=== PATIENT | female | born 1980 | race Caucasian/White ===

== ENCOUNTER 2019-01-31 07:42 | Inpatient (IN) | payer MEDICARE ==
[~2019-01-31] VITALS: Ht 167.6 cm; Wt 90.7 kg
--- NOTE | 2019-01-31 07:45 | NUR ---
UPON ARRIVAL, PT'S LEFT NECK WHERE IJ WAS APPEARS RED. IJ ACCIDENTALLY PULLED OUT DURING TRANSFER FROM EMS STRETCHER TO HOSPITAL BED.
[2019-01-31] MEDS ORDERED: ABILIFY2 MG PO (07:46)
[2019-01-31] MEDS ORDERED: STRATTERA10 MG PO (07:47)
[2019-01-31] MEDS ORDERED: TRAZODONE HCL150 MG PO (07:47)
--- NOTE | 2019-01-31 07:59 | NUR ---
CONSENTS SIGNED FOR SURGERY
--- NOTE | 2019-01-31 08:10 | NUR ---
PT OUT TO OR AT THIS TIME.
[2019-01-31 08:27] LABS: INR 1.24 (0.85-1.17)
[2019-01-31 08:28] LABS: HEMOGLOBIN 16.2 g/dL (12-16); MCH 30.9 pg (26.0-34.0); MCHC 34.5 g/dL (31.0-37.0); MCV 89.5 fL (80.0-100.0); MEAN PLATELET VOLUME 9.2 fL (7.4-10.4); PLATELET COUNT 302 10x3/uL (130-400); RBC 5.25 10x6/uL (4.00-5.40); RDW 13.3 % (11.5-14.5); WBC 22.7 10x3/uL (4.8-10.8)
[2019-01-31 08:34] LABS: ALBUMIN 2.2 g/dL (3.4-5.0); ALKALINE PHOSPHATASE 104 U/L (46-116); ALT (SGPT) 21 U/L (10-68); BILIRUBIN - TOTAL 0.75 mg/dL (0.2-1.3); CALC OSMOLALITY 267 mosm/kg (275-300); CALCIUM 7.9 mg/dL (8.5-10.1); CARBON DIOXIDE 26.8 mmol/L (21.0-32.0); CHLORIDE - SERUM 98 mmol/L (98-107); CREATININE - SERUM 0.8 mg/dL (0.6-1.3); GLUCOSE 150 mg/dL (74-106); POTASSIUM - SERUM 3.7 mmol/L (3.5-5.1); SODIUM 133 mmol/L (136-145); UREA NITROGEN 9 mg/dL (7-18); eGFR NON AFRICAN AMERICAN 85 mL/min (90-120)
[2019-01-31 09:07] LABS: LYMPHOCYTES 4 % (15-50); MONOCYTES 4 % (2-11); NEUTROPHILS 86 % (40-80); TOXIC GRANULATION 1+
[2019-01-31 09:09] LABS: HYPER SEGMENTED NEUTROPHILS 1+
[2019-01-31 09:10] LABS: PLATELET ESTIMATE NORMAL; ROULEAUX 2+
[2019-01-31 12:48] VITALS: BP 142/48; BMI 32.3
[2019-01-31 12:51] VITALS: BP 164/85
[2019-01-31 16:52] VITALS: BP 123/71
[2019-01-31 20:00] VITALS: BP 130/67
[2019-02-01 01:53] LABS: APPEARANCE HAZY (CLEAR); COLOR YELLOW (YELLOW); GLUCOSE 1000 mg/dL (NEGATIVE); NITRITE NEGATIVE (NEGATIVE); PROTEIN NEGATIVE (NEGATIVE); UDS - AMPHET POSITIVE QUAL (NEGATIVE); UDS - BARB NEGATIVE QUAL (NEGATIVE); UDS - BENZO NEGATIVE QUAL (NEGATIVE); UDS - COCAINE NEGATIVE QUAL (NEGATIVE); UDS - OPIATE NEGATIVE QUAL (NEGATIVE); UDS - PCP NEGATIVE QUAL (NEGATIVE); UDS - THC NEGATIVE QUAL (NEGATIVE)
[2019-02-01 01:54] LABS: BILIRUBIN NEGATIVE (NEGATIVE); KETONE NEGATIVE (NEGATIVE); UROBILINOGEN NORMAL (NORMAL)
--- NOTE | 2019-02-01 02:27 | NUR ---
PT SLIGHTLY DROWSY. RATED PAIN 7/10. GAVE 1 TAB OXY IR. COLLECTED URINE AND SENT TO LAB. COMPLETE ASSESSMENT PER FLOW-SHEET. WILL CONTINUE TO MONITOR.
[2019-02-01 04:00] VITALS: BP 110/74
[2019-02-01 05:18] LABS: RBC 4.17 10x6/uL (4.00-5.40); WBC 26.4 10x3/uL (4.8-10.8)
[2019-02-01 05:19] LABS: BASOPHILS 0.1 % (0-2); EOSINOPHILS 0 % (0-7); HEMOGLOBIN 12.6 g/dL (12-16); IMMATURE GRANULOCYTES 0.6 % (0-5); LYMPHOCYTES 6.5 % (15-50); MCH 30.2 pg (26.0-34.0); MCHC 34.1 g/dL (31.0-37.0); MCV 88.7 fL (80.0-100.0); MONOCYTES 6.4 % (2-11); NEUTROPHILS 86.4 % (40-80); PLATELET COUNT 375 10x3/uL (130-400); RDW 13.4 % (11.5-14.5)
[2019-02-01 05:26] LABS: CALC OSMOLALITY 275 mosm/kg (275-300); CALCIUM 7.9 mg/dL (8.5-10.1); CARBON DIOXIDE 26.4 mmol/L (21.0-32.0); CHLORIDE - SERUM 102 mmol/L (98-107); CREATININE - SERUM 0.7 mg/dL (0.6-1.3); POTASSIUM - SERUM 3.5 mmol/L (3.5-5.1); SODIUM 136 mmol/L (136-145); UREA NITROGEN 8 mg/dL (7-18); eGFR NON AFRICAN AMERICAN > 90 mL/min (90-120)
[2019-02-01 05:29] LABS: GLUCOSE 208 mg/dL (74-106)
[2019-02-01 09:06] VITALS: BP 122/88
--- NOTE | 2019-02-01 09:29 | OP ---
PATIENT NAME: CHARLES HENDRICKS MEDICAL RECORD: [id number] :78 LOCATION:D.MS [facility].2222 ADMISSION DATE:01/31/19 SURGEON: VARUN DEWITT, DATE OF OPERATION: 01/31/2019 PROCEDURE PERFORMED: Right upper extremity fasciotomy and compartment release with wound VAC application. PREOPERATIVE DIAGNOSES: Compartment syndrome, right upper extremity, in the forearm; and infection. POSTOPERATIVE DIAGNOSES: Compartment syndrome, right upper extremity, in the forearm; and infection. INDICATIONS: Ms. Hendricks is a 38-year-old female transferred here from another hospital for compartment syndrome. She said that she had "bug bites" of her right arm and she scratched them a lot and that, for the last 2 weeks, she has been asleep. She presented to the ER there and was transferred here. I saw her upon her arrival to ER. Her right upper extremity, from the mid forearm proximal, was hard to touch and was not compressible at all. She also had pain with passive stretch of the elbow, but not so much of the hand and the fingers. She did have sensation distally and all of her nerves were intact. Radial, ulnar, and median nerves were all intact. The patient, however, was extremely tender to palpation and was swollen from the mid forearm up to the shoulder. The right upper extremity was where the most of the swelling was. She was unaware how it got that bad, but she said that, over the last day or so, it has been the worst. Knowing that, I informed of the risks and told her that we needed to get her back to the OR immediately with pain with passive stretch and how hard her skin was and that she was at risk of losing the limb and losing blood flow. She did have a radial pulse. She was okay with those risks. She has risk for infection as well. She did have also, on the dorsal side of her forearm, a large what seemed to be an abscess that has not ruptured. She denied using any illicit drugs, but somebody has been giving her pain medicine and Xanax. After knowing the risks and the benefits of procedure, she signed the consent. DESCRIPTION OF PROCEDURE: She was taken to the operative suite, laid in supine position, and given general anesthetic and 2 grams of Ancef preoperatively. The right upper extremity was then prepped and draped in sterile fashion. Time-out was performed and everyone was in agreement with correct side, site, patient, and procedure. Incision was then began in the deltopec interval down the lateral arm and crossing the elbow from the lateral to medial to about the mid forearm and then down distally on the forearm little over the flexor carpi radialis tendon. The dissection was made down to each of the compartments. First, in the upper extremity, the anterior compartment was released. Fascia was released on biceps and brachialis as well and then posteriorly it was released off of the humerus, all through the same incision on the posterolateral and the posteromedial side. Then, attention was drawn to the mobile wad. The fascia was released on the mobile wad as well as the dorsal side of the forearm, more at the proximal forearm, and then at the antecubital fossa as well. Dissection was made down. She had somewhat of scar tissue in the antecubital fossa, which was removed and sent for pathology. The incision then began down through the forearm. The forearm compartments on the volar side had been released on the dorsal side through the same incision but more proximally. Once those have been released, on the abscesses on her dorsal aspect of her distal OPERATIVE REPORT [id number] CHARLES HENDRICKS forearm, a #10 blade was used to incise the skin over it and rima purulent fluid came out of that. This was cultured as the tissue that was taken out was cultured as well. The muscles of the upper arm did appear somewhat shiny. They were not as red as the posterior compartment of the upper arm as well as the dorsal compartment of the forearm. The same was for the forearm at the volar aspect. These were little more red and not as white or as shiny as the ones of the upper anterior compartment of the upper arm. Once that was done, the whole arm was irrigated as well as an abscess that had been drained and opened on the dorsal aspect. Then, the Vesseloops and andreia were used to do a Mati sandal-type closure down the whole arm crossing then tying at each end. Then, a wound VAC was placed over that on the incision and the steps also in the dorsal aspect of the distal forearm and bridged over to the volar aspect. The wound VAC was then plugged in and any leaks were covered with extra plastic. We did lay plastic down along the incision prior to setting the sponge on the wound. She was then awakened and taken to recovery in stable condition. BLOOD LOSS: Approximately 400 mL. COMPLICATIONS: None. TRANSINT:[id number] Voice Confirmation ID: [id number] DOCUMENT ID: [id number] VARUN DEWITT DO at 0929 CC: [id number] DICTATION DATE: 01/31/19 1030 CORE FINISHER: 01/31/19 1519 ADM IN [facility] [id number] [place] [address]
[2019-02-01 11:11] LABS: VANCOMYCIN - TROUGH 11.2 ug/mL (10.0-20.0)
[2019-02-01 11:12] LABS: POTASSIUM - SERUM 4.1 mmol/L (3.5-5.1)
[2019-02-01 13:44] VITALS: BP 115/65
--- NOTE | 2019-02-01 14:45 | MORECARE ---
CASE MANAGEMENT DISCHARGE SUMMARY PATIENT: CHARLES HENDRICKS UNIT: [id number] ADM DATE: 01/31/19 AGE: 38 : [birth year] SEX: F ROOM/BED: D.2222 AUTHOR: BRETHA GUERRERO PHYSICIAN: REFERRING PHYSICIAN: STEPHEN HAYNES MD DATE OF SERVICE: 02/01/19 Discharge Plan Patient Name: CHARLES HENDRICKS Facility: [facility]:[place] : 1980 Planned Disposition: Home with Home Health Anticipated Discharge Date: 02/01/19 Discharge Date: Expected LOS: 1 Initial Reviewer: [email or web address] Initial Review Date: 02/01/2019 Generated: 02/01/19 3:45 pm Comments DCP- Discharge Planning Updated by [email or web address]: Sophia Vazquez on 02/01/19 1:[address] Patient Name: CHARLES HENDRICKS Admission Status: ER Accout number: [id number] Admission Date: 01-31-2019 : 1980 Admission Diagnosis: Attending: STEPHEN HAYNES Current LOS: 1 Anticipated DC Date: 02-01-2019 Planned Disposition: Home with Home Health Primary Insurance: MEDICARE A & B Discharge Planning Comments: CM met with patient to complete initial dc planning assessment. CM educated patient on the CM role and verbal consent given by patient to complete assessment. Patient was living with her father prior to admission. She states she will not be returning there "they are no longer on speaking terms". She states she will be staying with a friend "Barbara". She is going to call Barbara to get her address. She states she has 3 children (ages 5,3 and 1 that are staying with family. CM discussed availability of home health, rehab services, and medical equipment. Patient states she may need a skilled facility in [place] or will need home health. She states her friend is a nurse and would be a teachable health care technician. She is going to get me the address of her discharge disposition and also a possible skilled facility to go to. I did inform her that Medicare will only cover 20 days at 100% of a skilled facility. She states she also has Medicaid ([place]). CM will continue to follow and will assist as needed with dc plans/needs. Shucker: Sophia Vazquez DCPIA - Discharge Planning Initial Assessment Updated by [email or web address]: Sophia George on 02/01/19 2:37 pm * Is the patient Alert and Oriented? Yes * How many steps to enter\\exit or inside your home? 3/0 * PCP Dr. Jaylon Hermosillo in [place] * [facility] in [place] * Preadmission Environment Home with Family * ADLs Independent * Equipment None * List name and contact numbers for known caregivers / representatives who currently or will assist patient after discharge: Zoran Chucky - boyfriend - no phone Barbara - friend - * Verbal permission to speak to the caregivers and representatives has been obtained from the patient. Yes * Community resources currently utilized None * Additional services required to return to the preadmission environment? Yes * Can the patient safely return to the preadmission environment? Yes * Has this patient been hospitalized within the prior 30 days at any hospital? No Patient Name: CHARLES HENDRICKS Page [id number] at 1445 All edits/amendments must be made on the electronic document DICTATION DATE: 02/01/191443 ENDLESS BELT FINISHER: FATOUMATA 02/01/19 1444 RPT#: [id number] DC DATE: STATUS: ADM IN [facility] [address] [place] [address] END OF REPORT
[2019-02-01 17:13] VITALS: BP 98/54
[2019-02-01 20:00] VITALS: BP 139/71
[2019-02-01 23:02] LABS: CKMB 2.3 U/L (0.0-3.6); CREATINE KINASE 445 UL (21-215)
[2019-02-01 23:08] LABS: TROPONIN-I < 0.017 ng/mL (0.000-0.060)
[2019-02-02 04:00] VITALS: BP 122/75
[2019-02-02 07:20] LABS: BASOPHILS 0.2 % (0-2); EOSINOPHILS 0.7 % (0-7); HEMOGLOBIN 10.4 g/dL (12-16); IMMATURE GRANULOCYTES 0.5 % (0-5); LYMPHOCYTES 24.6 % (15-50); MCH 29.6 pg (26.0-34.0); MCHC 32.5 g/dL (31.0-37.0); MEAN PLATELET VOLUME 8.7 fL (7.4-10.4); MONOCYTES 5.8 % (2-11); NEUTROPHILS 68.2 % (40-80); RBC 3.51 10x6/uL (4.00-5.40); RDW 13.7 % (11.5-14.5)
[2019-02-02 07:25] LABS: MCV 91.2 fL (80.0-100.0); PLATELET COUNT 278 10x3/uL (130-400); WBC 12.7 10x3/uL (4.8-10.8)
[2019-02-02 07:38] LABS: CALC OSMOLALITY 274 mosm/kg (275-300); CALCIUM 7.8 mg/dL (8.5-10.1); CARBON DIOXIDE 30.3 mmol/L (21.0-32.0); CHLORIDE - SERUM 104 mmol/L (98-107); CKMB 1.8 U/L (0.0-3.6); CREATINE KINASE 440 UL (21-215); CREATININE - SERUM 0.6 mg/dL (0.6-1.3); GLUCOSE 86 mg/dL (74-106); POTASSIUM - SERUM 3.7 mmol/L (3.5-5.1); SODIUM 139 mmol/L (136-145); TROPONIN-I < 0.017 ng/mL (0.000-0.060); UREA NITROGEN 8 mg/dL (7-18); eGFR NON AFRICAN AMERICAN > 90 mL/min (90-120)
--- NOTE | 2019-02-02 07:56 | NUR ---
CALLED TO PT. ROOM WANTING PAIN MED EDUCATED THEY WERE NOT DUE YET AND WHEN THEY COULD BE GIVEN. STATED OK CALLED BACK WITH PT C/O CHEST PAIN AT 2300 ASSISMENT COMPLETED ELAVATED HR V/S TEMP 99.9 B/P 139/71, P 99 RESP 22 98% ON ROOM AIR. LETTER SORTING MACHINE OPERATOR CALLED AND WAS ON SITE STATED HE WOULD COME CHECK HER. NURSE EDUCATED PATIENT ON DEEP BREATHING . SHE CONTIUED TO TAKE A BREATH AND HOLD THEN BLOW OUT HARD. EDUCATED AGAIN ON BREATHING, AND THAT HER V/S WERE STABLE. BUT THAT THE LETTER SORTING MACHINE OPERATOR WOULD BE BY TO CHECK ON HER AND HAD ORDERED LABS TO BE SAFE. sHE STATED OH GREAT THEY ARE GOING TO TAKE MORE BLOOD. EDUCATED ON THE NEED TO CHECK LEVELS TO INSURE EVERY THIS WAS GOOD. THE SHE STATED I WANT A BATH EDUCATED HER THAT STAFF WAS GETTING V/S AND DOING ALL THE THINGS TO START THE SHIFT BUT WOULD BE GLAD TO ASSIST WITH THAT SOON STAFF WAS ABLE TO DO SO. CALL STAFF BACK THREE MORE TIMES TO ASK FOR HER BATH EDUCATED THAT STAFF WOULD BED WITH HER AND DO SO SOON WAS POSABLE. SHE STATED I AM LAYING IN A DRITY BED. I NEEDS NEW SHEETS AND A BATH AGAIN ASURED HER THAT STAFF WOULD DO SO SOON STAFF WAS AVABLE TO DO SO. CALLED TO ROOM PATIENT ASKING WERE HER BOYFRIND WAS AND STATED IT DON'T TAKE 2 HOURS TO GO TO THE [facility]. THE NEXT TIME SHE CALLED STAFF TO ROOM SHE HAD THROUG PILLOWS AND BLANKES IN THE FLOOR AGAING UPSET BECOUSE HER BOYFRIND WAS GONE SO LONG AGAIN. AT 0329 TEMP OF 101.2 CALL TO LETTER SORTING MACHINE OPERATOR NEW ORDER FOR TYLENOL 650MG EVERY 4 HOURS NEEDE FOR PAIN OR TEMP. GIVEN PER ORDERS. BATH HAD BEEN GIVEN. AT 0400 AM IV OUT ATEMPTS X 2 FOR THIS NURSE ATEMPT X 2 BY 2ED FLOOR NURSE AND X2 BY ER NURSE STILL UNABLE TO START IV. CALL TO LETTER SORTING MACHINE OPERATOR ORDER FOR VASCULAR ACCESS . ORDER PLACED . PT RESTING AT THIS TIME WITH NO NEEDS.
[2019-02-02 08:00] VITALS: BP 94/63
--- NOTE | 2019-02-02 08:00 | NUR ---
ASSESSMENT PER FLOW SHEET. PT IS WITHOUT DISTRESS.CALL LIGHT IN REACH
[2019-02-02 13:33] LABS: CKMB 1.6 U/L (0.0-3.6); CREATINE KINASE 368 UL (21-215); TROPONIN-I < 0.017 ng/mL (0.000-0.060); VANCOMYCIN - TROUGH 7.3 ug/mL (10.0-20.0)
[2019-02-02 15:10] VITALS: BP 123/71
--- NOTE | 2019-02-02 16:24 | MORECARE ---
CASE MANAGEMENT DISCHARGE SUMMARY PATIENT: CHARLES HENDRICKS UNIT: [id number] ADM DATE: 01/31/19 AGE: 38 : [birth year] SEX: F ROOM/BED: D.2222 AUTHOR: YOLANDA,DOC PHYSICIAN: REFERRING PHYSICIAN: STEPHEN HAYNES MD DATE OF SERVICE: 02/02/19 Discharge Plan Patient Name: CHARLES HENDRICKS Facility: [facility]:[place] : 1980 Planned Disposition: Home with Home Health Anticipated Discharge Date: 02/01/19 Discharge Date: Expected LOS: 1 Initial Reviewer: [email or web address] Initial Review Date: 02/01/2019 Generated: 02/02/19 5:23 pm Comments DCP- Discharge Planning Updated by [email or web address]: Sophia Bradenrehan on 02/02/19 3:[address] I received a call from "Novemberela" from [facility] in [place] in [facility] [place]. She states that they are having a meeting about this patient and she has talked with the patient in room 2222 concerning her reason for admission. Ms. Alfaro states the patient told her from an arm infection. Eleonora asked if I could get a copy of her drug screen (patient "told me she had one done") and fax to her at [phone] or give her a verbal. I explained to her that I could not be certain over the phone who she is and was not able to do that. I called Susan Chavez and informed her and she states to refer her to medical records. I called and spoke with Adriana in Medical records and she states we cannot fax a drug screen to her without a court order and to refer all calls to them from [facility]. I went to the patient's room to see if she has spoken to Eleonora Alfaro and the boyfriend is in the room and states to come back at a later time to speak with her privately. CM will continue to follow and assist with discharge planning/needs. DCP- Discharge Planning Updated by [email or web address]: Sophia Bradenrehan on 02/01/19 1:[address] Patient Name: CHARLES HENDRICKS Admission Status: ER Accout number: [id number] Admission Date: 01-31-2019 : 1980 Admission Diagnosis: Attending: STEPHEN HAYNES Current LOS: 1 Anticipated DC Date: 02-01-2019 Planned Disposition: Home with Home Health Primary Insurance: MEDICARE A & B Discharge Planning Comments: CM met with patient to complete initial dc planning assessment. CM educated patient on the CM role and verbal consent given by patient to complete assessment. Patient was living with her father prior to admission. She states she will not be returning there "they are no longer on speaking terms". She states she will be staying with a friend "Barbara". She is going to call Barbara to get her address. She states she has 3 children (ages 5,3 and 1 that are staying with family. CM discussed availability of home health, rehab services, and medical equipment. Patient states she may need a skilled facility in [place] or will need home health. She states her friend is a nurse and would be a teachable child care leader. She is going to get me the address of her discharge disposition and also a possible skilled facility to go to. I did inform her that Medicare will only cover 20 days at 100% of a skilled facility. She states she also has Medicaid ([place]). CM will continue to follow and will assist as needed with dc plans/needs. Vehicle Dismantler: Sophia Vazquez DCPIA - Discharge Planning Initial Assessment Updated by [email or web address]: Sophia Vazquez on 02/01/19 2:37 pm * Is the patient Alert and Oriented? Yes * How many steps to enter\\exit or inside your home? 3/0 * PCP Dr. Jaylon Hermosillo in [place] * [facility] in [place] * Preadmission Environment Home with Family * ADLs Independent * Equipment None * List name and contact numbers for known caregivers / representatives who currently or will assist patient after discharge: Zoran Locke - boyfriend - no phone Barbara - friend - * Verbal permission to speak to the caregivers and representatives has been obtained from the patient. Yes * Community resources currently utilized None * Additional services required to return to the preadmission environment? Yes * Can the patient safely return to the preadmission environment? Yes * Has this patient been hospitalized within the prior 30 days at any hospital? No Last DP export: 02/01/19 1:45 p Patient Name: CHARLES HENDRICKS Page [id number] at 1624 All edits/amendments must be made on the electronic document DICTATION DATE: 02/02/191622 SHAKE SAWYER: FATOUMATA 02/02/191622 RPT#: [id number] DC DATE: STATUS: ADM IN [facility] [address] [place] [address] END OF REPORT
--- NOTE | 2019-02-02 17:54 | NUR ---
LARGE STOOL, BROWN IN COLOR THIS AFTERNOON.
--- NOTE | 2019-02-02 20:00 | NUR ---
ASSESSMENT PER FLOWSHEET. DRSG TO RT ARM WITH WOUND VAC IN PLACE. PATIENT LYING IN BED IN THE NUDE. REFUSES TO WEAR A GOWN. ASK PATIENT TO USE SHEET TO COVER UP HER BODY. IV PATENT LEFT UPPER ARM MIDLINE OF NS AT 50CC'S/HR. SITE CLEAR. HER BOYFRIEND LYING IN BED WITH HER.
[2019-02-02 21:01] VITALS: BP 140/59
--- NOTE | 2019-02-02 21:15 | NUR ---
MEDS GIVEN PER MAR.
--- NOTE | 2019-02-03 | NUR ---
PT NOW NPO FOR SURGERY. ASK PATIENT IF SHE WANTED TO TAKE A HIBICLEANSE BATH PATIENT STATED ONLY IF I CAN GET INTO THE SHOWER. INSTRUCTED PATIENT WILL NOT BE ABLE TO GET DRSG TO RT ARM WET WILL NEED TO TAKE A SPONGE BATH. PATIENT DECLINED AT THIS TIME.
--- NOTE | 2019-02-03 00:26 | NUR ---
AWAKE C/O PAIN IN RT ARM INCISION. OXY IR 10MG PO GIVEN FOR PAIN CONTROL WITH A SIP OF WATER.
[2019-02-03 00:48] VITALS: BP 129/71
--- NOTE | 2019-02-03 04:00 | NUR ---
EYES CLOSED RESPIRATIONS WITH EASE AND UNLABORED. REMAINS NPO FOR SURGERY.
--- NOTE | 2019-02-03 04:23 | NUR ---
HIBICLEANSE BATH GIVEN WITH LINENS CHANGED.
[2019-02-03 05:25] VITALS: BP 134/66
[2019-02-03 06:13] LABS: BASOPHILS 0.4 % (0-2); EOSINOPHILS 3.2 % (0-7); HEMATOCRIT 27.9 % (36.0-48.0); HEMOGLOBIN 9.1 g/dL (12-16); IMMATURE GRANULOCYTES 0.5 % (0-5); LYMPHOCYTES 32.9 % (15-50); MCH 29.6 pg (26.0-34.0); MCHC 32.6 g/dL (31.0-37.0); MCV 90.9 fL (80.0-100.0); MEAN PLATELET VOLUME 8.4 fL (7.4-10.4); MONOCYTES 5.9 % (2-11); NEUTROPHILS 57.1 % (40-80); PLATELET COUNT 315 10x3/uL (130-400); RBC 3.07 10x6/uL (4.00-5.40); RDW 13.5 % (11.5-14.5)
[2019-02-03 06:16] LABS: WBC 9.4 10x3/uL (4.8-10.8)
[2019-02-03 06:26] LABS: CALC OSMOLALITY 277 mosm/kg (275-300); CALCIUM 7.8 mg/dL (8.5-10.1); CARBON DIOXIDE 29.7 mmol/L (21.0-32.0); CHLORIDE - SERUM 106 mmol/L (98-107); CREATININE - SERUM 0.6 mg/dL (0.6-1.3); GLUCOSE 86 mg/dL (74-106); POTASSIUM - SERUM 3.9 mmol/L (3.5-5.1); SODIUM 141 mmol/L (136-145); UREA NITROGEN 7 mg/dL (7-18); eGFR NON AFRICAN AMERICAN > 90 mL/min (90-120)
--- NOTE | 2019-02-03 07:37 | NUR ---
PATIENT IN BED WITH IV AND WOUND VAC INTACT. STATES SHE IS HAVING VAGINAL PAIN AND BURNING IF SOMEONE HAS " PLAYED WITH IT A LOT". NO REDNESS OR RASH ON THE OUTSIDE OF HER VAGINA. STATED SHE HAS NO ITCHING. EXPLAINED WOULD SPEAK WITH PHYSICIAN ABOUT IT. VERBALIZED UNDERSTANDING. CALL LIGHT WITHIN REACH.
--- NOTE | 2019-02-03 08:50 | NUR ---
ASSESSMENT PER FLOW SHEET. PT IS WITHOUT DISTRESS. NPO FOR PROCEDURE TODAY. FAMILY AT BEDSIDE
[2019-02-03 09:19] VITALS: BP 157/72
--- NOTE | 2019-02-03 10:30 | NUR ---
pt reports sips and bites of food this am. surg put off till am
[2019-02-03 11:54] LABS: HCG URINE NEGATIVE (NEGATIVE)
[2019-02-03 11:59] LABS: UDS - AMPHET NEGATIVE QUAL (NEGATIVE); UDS - BARB NEGATIVE QUAL (NEGATIVE); UDS - BENZO NEGATIVE QUAL (NEGATIVE); UDS - COCAINE NEGATIVE QUAL (NEGATIVE); UDS - OPIATE NEGATIVE QUAL (NEGATIVE); UDS - PCP NEGATIVE QUAL (NEGATIVE); UDS - THC NEGATIVE QUAL (NEGATIVE)
[2019-02-03 12:56] VITALS: BP 132/75
[2019-02-03 13:13] LABS: FUNGUS STAIN Final report (())
--- NOTE | 2019-02-03 17:41 | NUR ---
REMAINS WITHOUT SIGNS OF PAIN. FAMILY REMAINS AT BEDSIDE.
[2019-02-03 18:33] VITALS: BP 111/83
--- NOTE | 2019-02-03 19:00 | NUR ---
WANTS PAINMEDS.PAIN MEDS ORDERED PER MAR
[2019-02-03 20:00] VITALS: BP 154/58
--- NOTE | 2019-02-03 20:00 | NUR ---
ASSESSMENT PER FLOWSHEET. IV PATENT LEFT UPPER ARM MIDLINE WITH NS AT 50CC'S/HR. RT ARM WITH WOUND VAC IN PLACE DRSG C/D/I. PATIENT REFUSES TO WEAR GOWN AND LIES IN BED IN THE NUDE. BOYFRIEND IN ROOM. PATIENT WAS ASKED SEVERAL TIMES TO COVER UP HERSELF. EVEN IF SHE DOESN'T WANT TO WEAR A GOWN.
--- NOTE | 2019-02-03 22:00 | NUR ---
PATIENT REFUSES MEDS.
[2019-02-04] VITALS: BP 139/62
--- NOTE | 2019-02-04 00:18 | NUR ---
EYES CLOSED RESPIRATIONS WITH EASE AND UNLABORED.
[2019-02-04 04:00] VITALS: BP 158/53
--- NOTE | 2019-02-04 06:28 | NUR ---
REMAINS NPO FOR SURGERY. AUTOMOBILE RELOCATION ENGINEER HERE FOR BLOOD DRAW DONE. WILL BE DOING A SELF CARE HIBICLEANSE SPONGE BATH. UNABLE TO GET INTO SHOWER BECAUSE OF HER WOUND VAC RT ARM.
[2019-02-04 06:45] LABS: BASOPHILS 0.3 % (0-2); EOSINOPHILS 4.5 % (0-7); HEMATOCRIT 29.3 % (36.0-48.0); HEMOGLOBIN 9.9 g/dL (12-16); LYMPHOCYTES 30.2 % (15-50); MCH 30.4 pg (26.0-34.0); MCHC 33.8 g/dL (31.0-37.0); MCV 89.9 fL (80.0-100.0); MEAN PLATELET VOLUME 8.2 fL (7.4-10.4); MONOCYTES 5.7 % (2-11); NEUTROPHILS 58.3 % (40-80); PLATELET COUNT 338 10x3/uL (130-400); RBC 3.26 10x6/uL (4.00-5.40); RDW 13.2 % (11.5-14.5); WBC 9.5 10x3/uL (4.8-10.8)
[2019-02-04 06:58] LABS: CALC OSMOLALITY 276 mosm/kg (275-300); CALCIUM 8.2 mg/dL (8.5-10.1); CARBON DIOXIDE 30.7 mmol/L (21.0-32.0); CHLORIDE - SERUM 103 mmol/L (98-107); CREATININE - SERUM 0.7 mg/dL (0.6-1.3); GLUCOSE 91 mg/dL (74-106); POTASSIUM - SERUM 4.3 mmol/L (3.5-5.1); SODIUM 139 mmol/L (136-145); eGFR NON AFRICAN AMERICAN > 90 mL/min (90-120)
[2019-02-04 07:05] LABS: UREA NITROGEN 10 mg/dL (7-18)
--- NOTE | 2019-02-04 08:00 | NUR ---
RECEIVED REPORT. PT REMAINS NPO FOR SURGERY TODAY. LYING IN BED EYES CLOSED RESTING. SIGNIFICANT OTHER AT BEDSIDE. LEFT UPPER ARM MIDLINE RUNNING NS @ 50ML/HR. REFUSED TO WEAR SCD. NO CONCERNS VOICED AT THIS TIME. WILL CONTINUE TO MONITOR
[2019-02-04 09:09] VITALS: BP 165/78
--- NOTE | 2019-02-04 11:18 | NUR ---
PT NOT IN ROOM.
[2019-02-04 12:36] VITALS: BP 148/80
[2019-02-04 14:36] VITALS: Ht 167.6 cm; Wt 90.7 kg
--- NOTE | 2019-02-04 14:53 | MORECARE ---
CASE MANAGEMENT DISCHARGE SUMMARY PATIENT: CHARLES HENDRICKS UNIT: [id number] ADM DATE: 01/31/19 AGE: 38 : 78 SEX: F ROOM/BED: D.2222 AUTHOR: YOLANDA,DOC PHYSICIAN: REFERRING PHYSICIAN: STEPHEN HAYNES MD DATE OF SERVICE: 02/04/19 Discharge Plan Patient Name: CHARLES HENDRICKS Facility: [facility]:[place] : 1980 Planned Disposition: Home with Home Health Anticipated Discharge Date: 02/01/19 Discharge Date: Expected LOS: 1 Initial Reviewer: [email or web address] Initial Review Date: 02/01/2019 Generated: 02/04/19 3:52 pm Comments DCP- Discharge Planning Updated by [email or web address]: Sophia Vazquez on 02/04/19 1:[address] November with [facility] in [place] called again asking for drug screen to be faxed to her. I informed her that I could not fax any records to her and referred her to Medical Records and gave her their number and transferred her call. Eleonora's call back number Is [phone] or her cell number is [phone]. DCP- Discharge Planning Updated by [email or web address]: Sophia Vazquez on 02/02/19 3:[address] I received a call from "Eleonora Alfaro" from [facility] in [place] in [facility]. She states that they are having a meeting about this patient and she has talked with the patient in room 2222 concerning her reason for admission. Ms. Alfaro states the patient told her from an arm infection. Eleonora Alfaro asked if I could get a copy of her drug screen (patient "told me she had one done") and fax to her at [phone] or give her a verbal. I explained to her that I could not be certain over the phone who she is and was not able to do that. I called Susan Chavez and informed her and she states to refer her to medical records. I called and spoke with Adriana in Medical records and she states we cannot fax a drug screen to her without a court order and to refer all calls to them from [facility]. I went to the patient's room to see if she has spoken to November and the boyfriend is in the room and states to come back at a later time to speak with her privately. CM will continue to follow and assist with discharge planning/needs. DCP- Discharge Planning Updated by [email or web address]: Sophia Vazquez on 02/01/19 1:[address] Patient Name: CHARLES HENDRICKS Admission Status: ER Accout number: [id number] Admission Date: 01-31-2019 : 1980 Admission Diagnosis: Attending: STEPHEN HAYNES Current LOS: 1 Anticipated DC Date: 02-01-2019 Planned Disposition: Home with Home Health Primary Insurance: MEDICARE A & B Discharge Planning Comments: CM met with patient to complete initial dc planning assessment. CM educated patient on the CM role and verbal consent given by patient to complete assessment. Patient was living with her father prior to admission. She states she will not be returning there "they are no longer on speaking terms". She states she will be staying with a friend "Barbara". She is going to call Barbara to get her address. She states she has 3 children (ages 5,3 and 1 that are staying with family. CM discussed availability of home health, rehab services, and medical equipment. Patient states she may need a skilled facility in [place] or will need home health. She states her friend is a nurse and would be a teachable healthcare or medical. She is going to get me the address of her discharge disposition and also a possible skilled facility to go to. I did inform her that Medicare will only cover 20 days at 100% of a skilled facility. She states she also has Medicaid ([place]). CM will continue to follow and will assist as needed with dc plans/needs. Wood Boatbuilder Apprentice: Sophia Vazquez DCPIA - Discharge Planning Initial Assessment Updated by [email or web address]: Sophia Vazquez on 02/01/19 2:37 pm * Is the patient Alert and Oriented? Yes * How many steps to enter\\exit or inside your home? 3/0 * PCP Dr. Jaylon Hermosillo in [place] * [facility] in [place] * Preadmission Environment Home with Family * ADLs Independent * Equipment None * List name and contact numbers for known caregivers / representatives who currently or will assist patient after discharge: Zoran Long - boyfriend - no phone Barbara - friend - * Verbal permission to speak to the caregivers and representatives has been obtained from the patient. Yes * Community resources currently utilized None * Additional services required to return to the preadmission environment? Yes * Can the patient safely return to the preadmission environment? Yes * Has this patient been hospitalized within the prior 30 days at any hospital? No Last DP export: 02/02/19 3:23 p Patient Name: CHARLES HENDRICKS Page 70710 at 1453 All edits/amendments must be made on the electronic document DICTATION DATE: 02/04/191451 IN CLASS SPECIAL EDUCATION TEACHER: FATOUMATA 02/04/191451 RPT#: [id number] DC DATE: STATUS: ADM IN [facility] [address] [place] [address] END OF REPORT
--- NOTE | 2019-02-04 16:07 | NUR ---
LYING IN BED ON LEFT SIDE ALERT AND NAKED, ASKED PT TO COVER UP PT REFUSED TO DO SO. SIGNIFICANT OTHER AT BEDSIDE
[2019-02-04 16:17] VITALS: BP 117/72
--- NOTE | 2019-02-04 17:31 | NUR ---
LYING IN BED ON LEFT SIDE EYES CLOSED RESTING. FAMILY AT BEDSIDE NOTED SLEEPING. NO SIGNS OF DISTRESS NOTED. CALL LIGHT WITHIN REACH, FALL PRECAUTIONS IN PLACE. WILL CONTINUE TO MONITOR
[2019-02-04 20:38] VITALS: BP 172/80
--- NOTE | 2019-02-04 23:30 | NUR ---
WASHED HAIR IN WARM SHAMPOO CAP. RIGHT HAND SWOLLEN. PULSES PRESENT. ELEVATED ON PILLOWS. ABSCESS ON LEFT THIGH DRAINING BLOODY PUS. CLEANED WITH SALINE AND EXPRESSED. CLEAN, DRIED AND APPLIED BORDERED GAUZE DRESSING. PT RATES ARM PAIN 8/10. GAVE OXY IR 10 MG PO. NO OTHER NEEDS. WILL CONTINUE TO MONITOR.
[2019-02-05 05:40] VITALS: BP 153/90
[2019-02-05 07:55] LABS: CALC OSMOLALITY 273 mosm/kg (275-300); CALCIUM 8.6 mg/dL (8.5-10.1); CARBON DIOXIDE 29.9 mmol/L (21.0-32.0); CHLORIDE - SERUM 102 mmol/L (98-107); CREATININE - SERUM 0.7 mg/dL (0.6-1.3); GLUCOSE 99 mg/dL (74-106); SODIUM 138 mmol/L (136-145); UREA NITROGEN 8 mg/dL (7-18); eGFR NON AFRICAN AMERICAN > 90 mL/min (90-120)
[2019-02-05 07:56] LABS: POTASSIUM - SERUM 5.8 mmol/L (3.5-5.1)
[2019-02-05 09:06] LABS: HEMATOCRIT 33.8 % (36.0-48.0); HEMOGLOBIN 11.8 g/dL (12-16); LYMPHOCYTES 23.2 % (15-50); MCH 31.4 pg (26.0-34.0); MCHC 34.9 g/dL (31.0-37.0); MCV 89.9 fL (80.0-100.0); MEAN PLATELET VOLUME 8.7 fL (7.4-10.4); NEUTROPHILS 71.7 % (40-80); PLATELET COUNT 408 10x3/uL (130-400); RBC 3.76 10x6/uL (4.00-5.40); RDW 12.9 % (11.5-14.5); WBC 9.5 10x3/uL (4.8-10.8)
[2019-02-05 10:14] LABS: FUNGUS MYCOLOGY CULTURE Preliminary report (())
[2019-02-05 11:19] VITALS: BP 156/77
[2019-02-05 12:57] VITALS: BP 145/55
[2019-02-05 16:58] VITALS: BP 108/88
--- NOTE | 2019-02-05 18:00 | NUR ---
SPOKE WITH PATIENT AND EXPLAINED TO HER THAT SHE NEEDED TO LAY DOWN AND LET HER ARM BE ELEVATED ON A PILLOW BECAUSE IT IS SWOLLEN. VERBALIZED UNDERSTANDING. ICE PACK PLACED ON RIGHT ARM AT THIS TIME. PATIENT HAND SWOLLEN. ABLE TO MOVE FINGERS AND PULSE WNL. CALL LIGHT WITHIN REACH.
--- NOTE | 2019-02-05 18:25 | NUR ---
PATIENT MIDLINE LEAKING AND HURTING PATIENT. REMOVED AT THIS TIME WITH CATH TIP INTACT. CALLED LOG STACKER OPERATOR TO MAKE AWARE.
--- NOTE | 2019-02-05 18:53 | NUR ---
TRIED TO START A NEW IV IN PATIENTS LEFT CHEST. UNSUCCESSFUL AT THIS TIME. SPOKE WITH TEODORO AND HE STATED TO FIND OUT IF MYRNA OR JUSTIN IS HERE. NEITHER ARE HERE AT THIS TIME. WILL NOTIFY TEODORO.
[2019-02-06] VITALS: BP 157/79
--- NOTE | 2019-02-06 01:30 | NUR ---
PT ALERT & ORIENTED. IV 22 G RESITED TO LEFT FOREARM BY YOSEF ANN. HUNG SCHEDULED ANTIBIOTIC. RIGHT ARM WOUND BLEEDING THROUGH. CHANGED 4X4'S AND REWRAPPED WITH NEW ZAYNAB. NO OTHER NEEDS. WILL CONTINUE TO MONITOR.
[2019-02-06 04:00] VITALS: BP 148/60
[2019-02-06 10:25] LABS: HEMATOCRIT 29.3 % (36.0-48.0); HEMOGLOBIN 10.2 g/dL (12-16); LYMPHOCYTES 26.3 % (15-50); MCH 31.5 pg (26.0-34.0); MCHC 34.8 g/dL (31.0-37.0); MCV 90.4 fL (80.0-100.0); MEAN PLATELET VOLUME 7.6 fL (7.4-10.4); NEUTROPHILS 67.1 % (40-80); PLATELET COUNT 486 10x3/uL (130-400); RBC 3.24 10x6/uL (4.00-5.40); RDW 12.6 % (11.5-14.5)
[2019-02-06 10:32] LABS: WBC 13.1 10x3/uL (4.8-10.8)
[2019-02-06 10:35] LABS: ALBUMIN 2.6 g/dL (3.4-5.0); ALKALINE PHOSPHATASE 105 U/L (46-116); ALT (SGPT) 32 U/L (10-68); BILIRUBIN - TOTAL 0.16 mg/dL (0.2-1.3); CALC OSMOLALITY 273 mosm/kg (275-300); CALCIUM 9.1 mg/dL (8.5-10.1); CHLORIDE - SERUM 100 mmol/L (98-107); CREATININE - SERUM 0.7 mg/dL (0.6-1.3); GLUCOSE 116 mg/dL (74-106); PROTEIN - SERUM 7.5 g/dL (6.4-8.2); SODIUM 137 mmol/L (136-145); UREA NITROGEN 10 mg/dL (7-18); eGFR NON AFRICAN AMERICAN > 90 mL/min (90-120)
[2019-02-06 10:36] LABS: POTASSIUM - SERUM 3.8 mmol/L (3.5-5.1)
[2019-02-06 12:32] VITALS: BP 150/76
--- NOTE | 2019-02-06 13:12 | NUR ---
PT RESTING IN BED. NO SIGNS OF DISTRESS. IV TO LEFT FOR ARM PATENT NO REDNESS OR TENDERNESS. HAS INCISION TO RIGHT ARM. DRESSING CHANGED THIS AM. COMPLAINS OF PAIN. MEDICATIONS GIVEN. DENIES ANY FUTHER NEED AT THIS TIME. CALL LIGHT IN REACH. BED LOW POSTIION. FAMILY AT BEDSIDE.
--- NOTE | 2019-02-06 22:15 | NUR ---
PREMEDICATED PT WITH OXY IR 10 MG PO FOR DRESSING CHANGE. ASSESSMENT COMPLETE PER FLOW-SHEET. PT LYING IN BED RESTING. WILL CONTINUE TO MONITOR.
--- NOTE | 2019-02-06 23:40 | NUR ---
REMOVED OLD PACKING FROM RIGHT ARM WOUND. PT PACKED AND DRESSED WET TO DRY. CHANGED BORDER DRESSING ON TOP PART OF INCISION. WRAPPED WITH NEW ZAYNAB WRAP. PUT DRESSING ON LEFT THIGH ABSCESS. NO OTHER NEEDS. WILL REASSESS AND CONTINUE TO MONITOR.
[2019-02-07 00:56] VITALS: BP 169/93
--- NOTE | 2019-02-07 04:59 | NUR ---
PT C/O LEFT FOREARM IV STARTING TO BURN. IV NO LONGER PATENT. REMOVED IV CATHETER INTACT. 22 G IV RESITED TO LEFT UPPER ARM BY DAVID ANDERSON. HUNG SCHEDULED ANTIBIOTICS. PT C/O INCISIONAL PAIN 02/17. GAVE OXY IR 10 MG PO. NO OTHER NEEDS. WILL REASSESS AND CONTINUE TO MONITOR.
[2019-02-07 05:44] VITALS: BP 139/76
[2019-02-07 06:54] LABS: ALBUMIN 2.4 g/dL (3.4-5.0); ALKALINE PHOSPHATASE 87 U/L (46-116); ALT (SGPT) 27 U/L (10-68); CALC OSMOLALITY 278 mosm/kg (275-300); CALCIUM 8.4 mg/dL (8.5-10.1); CARBON DIOXIDE 28.6 mmol/L (21.0-32.0); CHLORIDE - SERUM 104 mmol/L (98-107); CREATININE - SERUM 0.8 mg/dL (0.6-1.3); GLUCOSE 88 mg/dL (74-106); PROTEIN - SERUM 6.6 g/dL (6.4-8.2); SODIUM 140 mmol/L (136-145); eGFR NON AFRICAN AMERICAN 85 mL/min (90-120)
[2019-02-07 06:55] LABS: UREA NITROGEN 14 mg/dL (7-18)
[2019-02-07 07:03] LABS: BASOPHILS 0.6 % (0-2); HEMATOCRIT 29.8 % (36.0-48.0); HEMOGLOBIN 9.6 g/dL (12-16); IMMATURE GRANULOCYTES 3.3 % (0-5); LYMPHOCYTES 34.1 % (15-50); MCH 29.5 pg (26.0-34.0); MCHC 32.2 g/dL (31.0-37.0); MCV 91.7 fL (80.0-100.0); MEAN PLATELET VOLUME 8.5 fL (7.4-10.4); RBC 3.25 10x6/uL (4.00-5.40); RDW 13.6 % (11.5-14.5)
[2019-02-07 07:13] LABS: PLATELET COUNT 379 10x3/uL (130-400); WBC 9.7 10x3/uL (4.8-10.8)
[2019-02-07 10:25] VITALS: BP 145/90
--- NOTE | 2019-02-07 11:22 | NUR ---
PT RESTING IN BED. NO SIGNS OF DISTRESS. IV TO LEFT UPPER ARM PATENT NO REDNESS OR TENDERNESS. HAS DRESSING TO RIGHT ARM. WILL BE CHANGED. DENIES ANY FUTHER NEED AT THIS TIME. CALL LIGHT IN REACH. BED LOW POSITION. FAMILY AT BEDSIDE.
[2019-02-07 15:42] VITALS: BP 142/83
--- NOTE | 2019-02-07 19:11 | NUR ---
I have reviewed this patient and I concur with the Shift Assessment completed by the Licensed Practical Nurse today this shift.
[2019-02-07 20:59] VITALS: BP 133/68
--- NOTE | 2019-02-08 01:00 | NUR ---
REMOVED PACKING AND DRESSING FROM RIGHT ARM INCISION. INCISION EDGES APPROXIMATED WITHOUT REDNESS. WOUND BED PINK, SKIN EDGES DISCOLORED. SWELLING WITH SLIGHT REDNESS LATERAL TO WOUND BED. CALLED DR. WALSH AND OUTLINE REDNESS WITH MARKER. ASKED DR WALSH ABOUT ANTIBIOTIC. DR WALSH SAYS PRIMARY DOCS TO DIRECT ANTIBIOTIC THERAPY AND PAIN MEDS.
[2019-02-08 05:53] VITALS: BP 141/70
[2019-02-08 09:00] VITALS: BP 131/64
[2019-02-08 13:45] VITALS: BP 136/53
[2019-02-08 16:43] VITALS: BP 119/53
--- NOTE | 2019-02-08 17:00 | NUR ---
I have reviewed this patient and I concur with the Shift Assessment completed by the Licensed Practical Nurse today this shift.
[2019-02-08 20:00] VITALS: BP 136/67
--- NOTE | 2019-02-08 20:00 | NUR ---
ASSESSMENT PER FLOWSHEET. FOUND WOUND VAC TO RT AC NO CONNECTED TO MACHINE AND MACHINE TURNED OFF. CONNECTED TO MACHINE AND TURNED ON MACHINE. INSTRUCTED PATIENT NOT TO DISCONNECT WOUND VAC ANYMORE. ONLY THE NURSE ALLOWED TO WORK ON THE MACHINE. DRSGS X2 TO RT UPPER AND RT LOWER PORTION OF ARM C/D/I. SR UP X2 CALL LIGHT WITHIN REACH.
--- NOTE | 2019-02-08 22:22 | NUR ---
C/O PAIN IN HER RT ARM INCISIONAL SITE. RATES PAIN LEVEL #5. OXYIR 5MG PO GIVEN FOR PAIN CONTROL.
--- NOTE | 2019-02-09 | NUR ---
EYES CLOSED RESPIRATIONS WITH EASE AND UNLABORED. BOYFRIEND SLEEPING IN BED WITH HER.
[2019-02-09 01:17] VITALS: BP 118/75
[2019-02-09 05:20] VITALS: BP 123/67
[2019-02-09 06:17] LABS: HEMATOCRIT 34.2 % (36.0-48.0); HEMOGLOBIN 11.1 g/dL (12-16); MCH 29.8 pg (26.0-34.0); MCHC 32.5 g/dL (31.0-37.0); MCV 91.7 fL (80.0-100.0); MEAN PLATELET VOLUME 8.4 fL (7.4-10.4); PLATELET COUNT 386 10x3/uL (130-400); RBC 3.73 10x6/uL (4.00-5.40); RDW 13.6 % (11.5-14.5); WBC 10.2 10x3/uL (4.8-10.8)
[2019-02-09 06:21] LABS: ALBUMIN 2.8 g/dL (3.4-5.0); ALKALINE PHOSPHATASE 105 U/L (46-116); ALT (SGPT) 29 U/L (10-68); BILIRUBIN - TOTAL 0.16 mg/dL (0.2-1.3); CALC OSMOLALITY 276 mosm/kg (275-300); CALCIUM 8.8 mg/dL (8.5-10.1); CARBON DIOXIDE 28.4 mmol/L (21.0-32.0); CHLORIDE - SERUM 103 mmol/L (98-107); CREATININE - SERUM 0.8 mg/dL (0.6-1.3); GLUCOSE 100 mg/dL (74-106); POTASSIUM - SERUM 4.6 mmol/L (3.5-5.1); PROTEIN - SERUM 7.1 g/dL (6.4-8.2); SODIUM 139 mmol/L (136-145); eGFR NON AFRICAN AMERICAN 85 mL/min (90-120)
[2019-02-09 06:23] LABS: UREA NITROGEN 10 mg/dL (7-18)
[2019-02-09 08:44] VITALS: BP 123/63
[2019-02-09 08:50] LABS: PLATELET ESTIMATE NORMAL; TOXIC GRANULATION OCC
[2019-02-09 08:55] LABS: EOSINOPHILS 7 % (0-7); LYMPHOCYTES 21 % (15-50); MONOCYTES 11 % (2-11); NEUTROPHILS 58 % (40-80)
[2019-02-09 08:57] LABS: ANISOCYTOSIS OCC
[2019-02-09 09:00] VITALS: BP 115/79
--- NOTE | 2019-02-09 12:09 | MORECARE ---
CASE MANAGEMENT DISCHARGE SUMMARY PATIENT: CHARLES HENDRICKS UNIT: [id number] ADM DATE: 01/31/19 AGE: 38 : [birth year] SEX: F ROOM/BED: D.2222 AUTHOR: YOLANDA,DOC PHYSICIAN: REFERRING PHYSICIAN: STEPHEN HAYNES MD DATE OF SERVICE: 02/09/19 Discharge Plan Patient Name: CHARLES HENDRICKS Facility: [facility]:[place] : 1980 Planned Disposition: Home with Home Health Anticipated Discharge Date: 02/01/19 Discharge Date: Expected LOS: 1 Initial Reviewer: [email or web address] Initial Review Date: 02/01/2019 Generated: 02/09/19 1:09 pm DCP- Discharge Planning Updated by [email or web address]: Sophia Vazquez on 02/04/19 1:[address] November with [facility] in [place] called again asking for drug screen to be faxed to her. I informed her that I could not fax any records to her and referred her to Medical Records and gave her their number and transferred her call. Eleonora's call back number Is [phone] or her cell number is [phone]. DCP- Discharge Planning Updated by [email or web address]: Sophia Vazquez on 02/02/19 3:[address] I received a call from "Eleonora Alfaro" from [facility] in [place] in [facility]. She states that they are having a meeting about this patient and she has talked with the patient in room 2222 concerning her reason for admission. Ms. Alfaro states the patient told her from an arm infection. Eleonora Alfaro asked if I could get a copy of her drug screen (patient "told me she had one done") and fax to her at [phone] or give her a verbal. I explained to her that I could not be certain over the phone who she is and was not able to do that. I called Susan Chavez and informed her and she states to refer her to medical records. I called and spoke with Adriana in Medical records and she states we cannot fax a drug screen to her without a court order and to refer all calls to them from [facility]. I went to the patient's room to see if she has spoken to November and the boyfriend is in the room and states to come back at a later time to speak with her privately. CM will continue to follow and assist with discharge planning/needs. DCP- Discharge Planning Updated by [id number]: Sophia Vazquez on 02/01/19 1:[address] Patient Name: CHARLES HENDRICKS Admission Status: ER Accout number: [id number] Admission Date: 01-31-2019 : 1980 Admission Diagnosis: Attending: STEPHEN HAYNES Current LOS: 1 Anticipated DC Date: 02-01-2019 Planned Disposition: Home with Home Health Primary Insurance: MEDICARE A & B Discharge Planning Comments: CM met with patient to complete initial dc planning assessment. CM educated patient on the CM role and verbal consent given by patient to complete assessment. Patient was living with her father prior to admission. She states she will not be returning there "they are no longer on speaking terms". She states she will be staying with a friend "Barbara". She is going to call Barbara to get her address. She states she has 3 children (ages 5,3 and 1 that are staying with family. CM discussed availability of home health, rehab services, and medical equipment. Patient states she may need a skilled facility in [place] or will need home health. She states her friend is a nurse and would be a teachable patient centered care specialist. She is going to get me the address of her discharge disposition and also a possible skilled facility to go to. I did inform her that Medicare will only cover 20 days at 100% of a skilled facility. She states she also has Medicaid ([place]). CM will continue to follow and will assist as needed with dc plans/needs. Cocktail Server: Sophia Vazquez DCPIA - Discharge Planning Initial Assessment Updated by [id number]: Sophia Vazquez on 02/01/19 2:37 pm * Is the patient Alert and Oriented? Yes * How many steps to enter\\exit or inside your home? 3/0 * PCP Dr. Jaylon Hermosillo in [place] * [facility] [place] * Preadmission Environment Home with Family * ADLs Independent * Equipment None * List name and contact numbers for known caregivers / representatives who currently or will assist patient after discharge: Zoran Long - boyfriend - no phone Barbara - friend - * Verbal permission to speak to the caregivers and representatives has been obtained from the patient. Yes * Community resources currently utilized None * Additional services required to return to the preadmission environment? Yes * Can the patient safely return to the preadmission environment? Yes * Has this patient been hospitalized within the prior 30 days at any hospital? No External Providers External Provider: [facility] [employer] Next Contact Date: Service Request Date: Service Type: Resolution: Reviewer: Comments: Last DP export: 02/04/19 1:52 p Patient Name: CHARLES HENDRICKS Page 41965 at 1209 All edits/amendments must be made on the electronic document DICTATION DATE: 02/09/191208 MECHANICAL SYSTEMS CONTROL ENGINEER: FATOUMATA 02/09/19 120 RPT#: [id number] DC DATE: STATUS: ADM IN [facility] [address] [place] [address] END OF REPORT
[2019-02-09 12:50] VITALS: BP 112/56
--- NOTE | 2019-02-09 13:38 | MORECARE ---
CASE MANAGEMENT DISCHARGE SUMMARY PATIENT: CHARLES HENDRICKS UNIT: [id number] ADM DATE: 01/31/19 AGE: 38 : 78 SEX: F ROOM/BED: D.2222 AUTHOR: YOLANDA,DOC PHYSICIAN: REFERRING PHYSICIAN: STEPHEN HAYNES MD DATE OF SERVICE: 02/09/19 Discharge Plan Patient Name: CHARLES HENDRICKS Facility: [facility]:[place] : 1980 Planned Disposition: Home with Home Health Anticipated Discharge Date: 02/01/19 Discharge Date: Expected LOS: 1 Initial Reviewer: [email or web address] Initial Review Date: 02/01/2019 Generated: 02/09/19 2:38 pm Comments DCP- Discharge Planning Updated by [email or web address]: Sophia Vazquez on 02/09/19 12:[address] I have faxed wound vac order sheet from [facility] to Dr. Rivera's office to be signed and Rodolfo Estrella notified. AUBREE for [facility] and [facility] in [place] signed by patient for home health. I spoke with Crystal at [facility] and clinical faxed to [phone]. [facility] Patient will be staying with a friend - Barbara Contreras at [address] [place] [address] Rd. [facility] [address] DCP- Discharge Planning Updated by [email or web address]: Sophia Vazquez on 02/04/19 1:[address] November with [facility] in [place] called again asking for drug screen to be faxed to her. I informed her that I could not fax any records to her and referred her to Medical Records and gave her their number and transferred her call. November's call back number Is [phone] or her cell number is [phone]. DCP- Discharge Planning Updated by [email or web address]: Sophia Vazquez on 02/02/19 3:[address] I received a call from "November" from [facility] in [place] in [facility]. She states that they are having a meeting about this patient and she has talked with the patient in room 2222 concerning her reason for admission. Ms. Alfaro states the patient told her from an arm infection. Eleonora Alfaro asked if I could get a copy of her drug screen (patient "told me she had one done") and fax to her at [phone] or give her a verbal. I explained to her that I could not be certain over the phone who she is and was not able to do that. I called Susan Chavez and informed her and she states to refer her to medical records. I called and spoke with Adriana in Medical records and she states we cannot fax a drug screen to her without a court order and to refer all calls to them from [facility]. I went to the patient's room to see if she has spoken to Eleonora Alfaro and the boyfriend is in the room and states to come back at a later time to speak with her privately. CM will continue to follow and assist with discharge planning/needs. DCP- Discharge Planning Updated by [email or web address]: Sophia Vazquez on 02/01/19 1:[address] Patient Name: CHARLES HENDRICKS Admission Status: ER Accout number: [id number] Admission Date: 01-31-2019 : 1980 Admission Diagnosis: Attending: STEPHEN HAYNES Current LOS: 1 Anticipated DC Date: 02-01-2019 Planned Disposition: Home with Home Health Primary Insurance: MEDICARE A & B Discharge Planning Comments: CM met with patient to complete initial dc planning assessment. CM educated patient on the CM role and verbal consent given by patient to complete assessment. Patient was living with her father prior to admission. She states she will not be returning there "they are no longer on speaking terms". She states she will be staying with a friend "Barbara". She is going to call Barbara to get her address. She states she has 3 children (ages 5,3 and 1 that are staying with family. CM discussed availability of home health, rehab services, and medical equipment. Patient states she may need a skilled facility in [place] or will need home health. She states her friend is a nurse and would be a teachable career technical supervisor. She is going to get me the address of her discharge disposition and also a possible skilled facility to go to. I did inform her that Medicare will only cover 20 days at 100% of a skilled facility. She states she also has Medicaid ([place]). CM will continue to follow and will assist as needed with dc plans/needs. Digital Solution Architect: Sophia Vazquez DCPIA - Discharge Planning Initial Assessment Updated by [email or web address]: Sophia Vazquez on 02/01/19 2:37 pm * Is the patient Alert and Oriented? Yes * How many steps to enter\\exit or inside your home? 3/0 * PCP Dr. Jaylon Hermosillo in [place] * [facility] [place] * Preadmission Environment Home with Family * ADLs Independent * Equipment None * List name and contact numbers for known caregivers / representatives who currently or will assist patient after discharge: Zoran Long - boyfriend - no phone Barbara - friend - * Verbal permission to speak to the caregivers and representatives has been obtained from the patient. Yes * Community resources currently utilized None * Additional services required to return to the preadmission environment? Yes * Can the patient safely return to the preadmission environment? Yes * Has this patient been hospitalized within the prior 30 days at any hospital? No Last DP export: 02/09/19 11:09 am Patient Name: CHARLES HENDRICKS Page 92406 at 1338 All edits/amendments must be made on the electronic document DICTATION DATE: 02/09/191337 FAMILY AND CONSUMER SCIENCE PROFESSOR: FATOUMATA 02/09/198 RPT#: [id number] DC DATE: STATUS: ADM IN [facility] [address] [place] [address] END OF REPORT
--- NOTE | 2019-02-09 13:46 | MORECARE ---
CASE MANAGEMENT DISCHARGE SUMMARY PATIENT: CHARLES HENDRICKS UNIT: [id number] ADM DATE: 01/31/19 AGE: 38 : [birth year] SEX: F ROOM/BED: D.2222 AUTHOR: YOLANDA,DOC PHYSICIAN: REFERRING PHYSICIAN: STEPHEN HAYNES MD DATE OF SERVICE: 02/09/19 Discharge Plan Patient Name: CHARLES HENDRICKS Facility: [facility]:[place] : 1980 Planned Disposition: Home with Home Health Anticipated Discharge Date: 02/01/19 Discharge Date: Expected LOS: 1 Initial Reviewer: [email or web address] Initial Review Date: 02/01/2019 Generated: 02/09/19 2:45 pm Comments DCP- Discharge Planning Updated by [email or web address]: Sophia Vazquez on 02/09/19 12:[address] I have faxed wound vac order sheet from [facility] to Dr. Rivera's office to be signed and Rodolfo Estrella notified. AUBREE for [facility] and [facility] in [place] signed by patient for home health. I spoke with Crystal at [facility] and clinical faxed to [phone]. [facility] Patient will be staying with a friend - Barbara Contreras at [address] [place] [address] Rd. [facility] [address] DCP- Discharge Planning Updated by [id number]: Sophia Vazquez on 02/04/19 1:[address] November with [facility] in [place] called again asking for drug screen to be faxed to her. I informed her that I could not fax any records to her and referred her to Medical Records and gave her their number and transferred her call. November's call back number Is [phone] or her cell number is [phone]. DCP- Discharge Planning Updated by [email or web address]: Sophia Vazquez on 02/02/19 3:[address] I received a call from "November" from [facility] in [place] in [facility]. She states that they are having a meeting about this patient and she has talked with the patient in room 2222 concerning her reason for admission. Ms. Alfaro states the patient told her from an arm infection. Eleonora Alfaro asked if I could get a copy of her drug screen (patient "told me she had one done") and fax to her at [phone] or give her a verbal. I explained to her that I could not be certain over the phone who she is and was not able to do that. I called Susan Chavez and informed her and she states to refer her to medical records. I called and spoke with Adriana in Medical records and she states we cannot fax a drug screen to her without a court order and to refer all calls to them from [facility]. I went to the patient's room to see if she has spoken to Eleonora Alfaro and the boyfriend is in the room and states to come back at a later time to speak with her privately. CM will continue to follow and assist with discharge planning/needs. DCP- Discharge Planning Updated by [email or web address]: Sophia Vazquez on 02/01/19 1:[address] Patient Name: CHARLES HENDRICKS Admission Status: ER Accout number: [id number] Admission Date: 01-31-2019 : 1980 Admission Diagnosis: Attending: STEPHEN HAYNES Current LOS: 1 Anticipated DC Date: 02-01-2019 Planned Disposition: Home with Home Health Primary Insurance: MEDICARE A & B Discharge Planning Comments: CM met with patient to complete initial dc planning assessment. CM educated patient on the CM role and verbal consent given by patient to complete assessment. Patient was living with her father prior to admission. She states she will not be returning there "they are no longer on speaking terms". She states she will be staying with a friend "Barbara". She is going to call Barbara to get her address. She states she has 3 children (ages 5,3 and 1 that are staying with family. CM discussed availability of home health, rehab services, and medical equipment. Patient states she may need a skilled facility in [place] or will need home health. She states her friend is a nurse and would be a teachable medicare interviewer. She is going to get me the address of her discharge disposition and also a possible skilled facility to go to. I did inform her that Medicare will only cover 20 days at 100% of a skilled facility. She states she also has Medicaid ([place]). CM will continue to follow and will assist as needed with dc plans/needs. Art Class Model: Sophia Bradenrehan DCPIA - Discharge Planning Initial Assessment Updated by [email or web address]: Sophia Vazquez on 02/01/19 2:37 pm * Is the patient Alert and Oriented? Yes * How many steps to enter\\exit or inside your home? 3/0 * PCP Dr. Jaylon Hermosillo in [place] * [facility] [place] * Preadmission Environment Home with Family * ADLs Independent * Equipment None * List name and contact numbers for known caregivers / representatives who currently or will assist patient after discharge: Zoran Long - boyfriend - no phone Barbara - friend - * Verbal permission to speak to the caregivers and representatives has been obtained from the patient. Yes * Community resources currently utilized None * Additional services required to return to the preadmission environment? Yes * Can the patient safely return to the preadmission environment? Yes * Has this patient been hospitalized within the prior 30 days at any hospital? No External Providers External Provider: OTHER-OTHER Next Contact Date: Service Request Date: Service Type: Resolution: Reviewer: Comments: Coverage Notice Reviewer: [email or web address] - Sophia Vazquez Notice Issued Date-Time: 02/09/2019 13:44 Notice Type: Patient Choice Letter Notice Delivered To: Patient Relationship to Patient: Self Clinical Program Director Name: Delivery Method: HAND - Hand Delivered Patrica Days: Prior Verbal Notification: Recipient Understood Notice: Yes Recipient Signature: Yes Med Rec Note Co-signed by Attending: Coverage Notice Comment: AUBREE for [facility] in [place] Last DP export: 02/09/19 12:38 pm Patient Name: CHARLES HENDRICKS Page 95823 at 1346 All edits/amendments must be made on the electronic document DICTATION DATE: 02/09/19 1345 ENCYCLOPEDIA RESEARCH WORKER: FATOUMATA 02/09/19 1345 RPT#: [id number] DC DATE: STATUS: ADM IN [facility] [address] [place] [address] END OF REPORT
--- NOTE | 2019-02-09 15:41 | MORECARE ---
CASE MANAGEMENT DISCHARGE SUMMARY PATIENT: CHARLES HENDRICKS UNIT: [id number] ADM DATE: 01/31/19 AGE: 38 : 78 SEX: F ROOM/BED: D.2222 AUTHOR: YOLANDA,DOC PHYSICIAN: REFERRING PHYSICIAN: STEPHEN HAYNES MD DATE OF SERVICE: 02/09/19 Discharge Plan Patient Name: CHARLES HENDRICKS Facility: [facility]:[place] : 1980 Planned Disposition: Home with Home Health Anticipated Discharge Date: 02/01/19 Discharge Date: Expected LOS: 1 Initial Reviewer: [email or web address] Initial Review Date: 02/01/2019 Generated: 02/09/19 4:41 pm Comments DCP- Discharge Planning Updated by [email or web address]: Sophia Vazquez on 02/09/19 2:[address] Received a call back from Mica at [facility], they will accept patient and see her on Friday for wound vac change. She will need to have a face to face with her PCP (Dr. Jaylon Hermosillo [facility] after discharge). I am waiting on insurance auth for home wound vac. CM will continue to follow and assist with discharge planning/needs. DCP- Discharge Planning Updated by [email or web address]: Sophia Vazquez on 02/09/19 12:[address] I have faxed wound vac order sheet from [facility] to Dr. Rivera's office to be signed and [facility] notified. AUBREE for [facility] and [facility] in [place] signed by patient for home [facility]. I spoke with Crystal at [facility] and clinical faxed to [phone]. [facility] Patient will be staying with a friend - Barbara Contreras at [address] [place] [address] [place] [address] DCP- Discharge Planning Updated by [id number]: Sophia Vazquez on 02/04/19 1:[address] November with [facility] in [place] called again asking for drug screen to be faxed to her. I informed her that I could not fax any records to her and referred her to Medical Records and gave her their number and transferred her call. Eleonora's call back number Is [phone] or her cell number is [phone]. DCP- Discharge Planning Updated by [id number]: Sophia Vazquez on 02/02/19 3:[address] I received a call from "Eleonora Alfaro" from [facility] in [place] in [facility]. She states that they are having a meeting about this patient and she has talked with the patient in room 2222 concerning her reason for admission. Ms. Alfaro states the patient told her from an arm infection. Eleonora Alfaro asked if I could get a copy of her drug screen (patient "told me she had one done") and fax to her at [phone] or give her a verbal. I explained to her that I could not be certain over the phone who she is and was not able to do that. I called Susan Chavez and informed her and she states to refer her to medical records. I called and spoke with Adriana in Medical records and she states we cannot fax a drug screen to her without a court order and to refer all calls to them from [facility]. I went to the patient's room to see if she has spoken to Eleonora Alfaro and the boyfriend is in the room and states to come back at a later time to speak with her privately. CM will continue to follow and assist with discharge planning/needs. DCP- Discharge Planning Updated by [id number]: Sophia Vazquez on 02/01/19 1:[address] Patient Name: CHARLES HENDRICKS Admission Status: ER Accout number: [id number] Admission Date: 01-31-2019 : 1980 Admission Diagnosis: Attending: STEPHEN HAYNES Current LOS: 1 Anticipated DC Date: 02-01-2019 Planned Disposition: Home with Home Health Primary Insurance: MEDICARE A & B Discharge Planning Comments: CM met with patient to complete initial dc planning assessment. CM educated patient on the CM role and verbal consent given by patient to complete assessment. Patient was living with her father prior to admission. She states she will not be returning there "they are no longer on speaking terms". She states she will be staying with a friend "Barbara". She is going to call Barbara to get her address. She states she has 3 children (ages 5,3 and 1 that are staying with family. CM discussed availability of home health, rehab services, and medical equipment. Patient states she may need a skilled facility in [place] or will need home health. She states her friend is a nurse and would be a teachable inpatient care manager rn. She is going to get me the address of her discharge disposition and also a possible skilled facility to go to. I did inform her that Medicare will only cover 20 days at 100% of a skilled facility. She states she also has Medicaid ([place]). CM will continue to follow and will assist as needed with dc plans/needs. Senior Sous Chef: Sophia Vazquez DCPIA - Discharge Planning Initial Assessment Updated by [email or web address]: Sophia Vazquez on 02/01/19 2:37 pm * Is the patient Alert and Oriented? Yes * How many steps to enter\\exit or inside your home? 3/0 * PCP Dr. Jaylon Hermosillo in [place] * [facility] [place] * Preadmission Environment Home with Family * ADLs Independent * Equipment None * List name and contact numbers for known caregivers / representatives who currently or will assist patient after discharge: Zoran Locke - boyfriend - no phone Barbara - friend - * Verbal permission to speak to the caregivers and representatives has been obtained from the patient. Yes * Community resources currently utilized None * Additional services required to return to the preadmission environment? Yes * Can the patient safely return to the preadmission environment? Yes * Has this patient been hospitalized within the prior 30 days at any hospital? No Coverage Notice Reviewer: [id number] - Sophia Vazquez Notice Issued Date-Time: 02/09/2019 13:44 Notice Type: Patient Choice Letter Notice Delivered To: Patient Relationship to Patient: Self Shop Foreman Name: Delivery Method: HAND - Hand Delivered Patrica Days: Prior Verbal Notification: Recipient Understood Notice: Yes Recipient Signature: Yes Med Rec Note Co-signed by Attending: Coverage Notice Comment: AUBREE for [facility] and [facility] in [place] Last DP export: 02/09/19 12:46 pm Patient Name: CHARLES HENDRICKS Page [id number] at 1541 All edits/amendments must be made on the electronic document DICTATION DATE: 02/09/19 154 GRAPHICS SPECIALIST: FATOUMATA 02/09/19 154 RPT#: [id number] DC DATE: STATUS: ADM IN [facility] [address] [place] [address] END OF REPORT
--- NOTE | 2019-02-09 19:40 | NUR ---
PT SITTING UP IN BED WITHOUT DISTRESS, ALERT AND ORIENTED. NO IV ACCESS. STATES SOME PAIN TO RIGHT ARM, DRESSING CDI. DENIES NEEDS AT THIS TIME. CL IN REACH, WILL CTM
--- NOTE | 2019-02-09 20:40 | NUR ---
CHANGED DRESSING TO UPPER AND LOWER ARM INCISIONS TO WHITE BORDERED DRESSINGS. WOUND VAC DRESSING CDI
[2019-02-09 21:07] VITALS: BP 124/78
[2019-02-10 01:00] VITALS: BP 132/76
--- NOTE | 2019-02-10 01:20 | NUR ---
PT CAME OUT OF ROOM TO NURSES STATION, STATES HER ARM FEELS MORE SWOLLEN AND THAT IT JUST BEGAN TO SWELL. CAP REFILL 3 SECS. +2 SWELLING TO ENTIRE RIGHT ARM. INNER ELBOW TIGHT TO TOUCH. PERIPHERAL PULSES PRESENT. PT IS ABLE TO MOVE FINGERS. HAD PT PROP ARM ABOVE LEVEL OF HEART. PT STATES PAIN 9/10. GAVE OXY ORDERED, WILL MONITOR
--- NOTE | 2019-02-10 02:45 | NUR ---
SWELLING IN RIGHT ARM HAS DECREASED, LESS RED THAN BEFORE. PT HAS ARM ELEVATED ON PILLOW. WILL CTM
--- NOTE | 2019-02-10 05:00 | NUR ---
PT REFUSED AM LAB DRAW
[2019-02-10 05:02] VITALS: BP 123/55
[2019-02-10 09:10] VITALS: BP 123/71
--- NOTE | 2019-02-10 09:16 | NUR ---
PT LAYING IN BED TALKING ON CELL PHONE WITH BOYFRIEND SLEEPIN IN CHAIR BESIDE THE BED. PT DENIES NEEDING ANYTHING AT THIS TIME, BED IN LOWEST POSITION AND CALL LIGHT WITH IN REACH. CONTINUE WITH PLAN OF CARE.
[2019-02-10] MEDS ORDERED: VIBRAMYCIN 100100 MG PO (10:00)
[2019-02-10] MEDS ORDERED: MIRALAX17 GM PO (10:01)
--- NOTE | 2019-02-10 10:14 | MORECARE ---
CASE MANAGEMENT DISCHARGE SUMMARY PATIENT: CHARLES HENDRICKS UNIT: [id number] ADM DATE: 01/31/19 AGE: 38 : 78 SEX: F ROOM/BED: D.2222 AUTHOR: YOLANDA,DOC PHYSICIAN: REFERRING PHYSICIAN: STEPHEN HAYNES MD DATE OF SERVICE: 02/10/19 Discharge Plan Patient Name: CHARLES HENDRICKS Facility: [facility]:[place] : 1980 Planned Disposition: Home with Home Health Anticipated Discharge Date: 02/01/19 Discharge Date: Expected LOS: 1 Initial Reviewer: [email or web address] Initial Review Date: 02/01/2019 Generated: 02/10/19 11:13 am Comments DCP- Discharge Planning Updated by [id number]: Sophia George on 02/10/19 9:[address] Received authorization for wound vac. I met with patient and she signed [facility] paper work. I called [employer] and faxed them paperwork for home wound vac and spoke with Cristy. Patient in agreement to discharge today, her boyfriend is driving her home. I informed patient that she will need an appointment with Jaylon RUDOLPH for face to face because he is the one to sign home health orders. Faxed discharge orders to [facility]. Velarde with wound care called to change dressing if needed. CM will continue to follow and assist with discharge planning/needs. DCP- Discharge Planning Updated by [id number]: Sophia Vazquez on 02/09/19 2:[address] Received a call back from Mica at [facility], they will accept patient and see her on Friday for wound vac change. She will need to have a face to face with her PCP (Dr. Jaylon RUDOLPH after discharge). I am waiting on insurance auth for home wound vac. CM will continue to follow and assist with discharge planning/needs. DCP- Discharge Planning Updated by [id number]: Sophia George on 02/09/19 12:[address] I have faxed wound vac order sheet from [facility] to Dr. Rivera's office to be signed and Rodolfo Estrella notified. AUBREE for [facility] and [facility] in [place] signed by patient for home health. I spoke with Crystal at [facility] and clinical faxed to [phone]. [facility] Patient will be staying with a friend - Barbara [place]reras [address] [place] [address] DCP- Discharge Planning Updated by [email or web address]: Sophia Vazquez on 02/04/19 1:[address] November with [facility] in [place] called again asking for drug screen to be faxed to her. I informed her that I could not fax any records to her and referred her to Medical Records and gave her their number and transferred her call. November's call back number Is [phone] or her cell number is [phone]. DCP- Discharge Planning Updated by [id number]: Sophia Vazquez on 02/02/19 3:[address] I received a call from "Eleonora Alfaro" from [facility] in [place] in [facility]. She states that they are having a meeting about this patient and she has talked with the patient in room 2222 concerning her reason for admission. Ms. Alfaro states the patient told her from an arm infection. Eleonora Alfaro asked if I could get a copy of her drug screen (patient "told me she had one done") and fax to her at [phone] or give her a verbal. I explained to her that I could not be certain over the phone who she is and was not able to do that. I called Susan Chavez and informed her and she states to refer her to medical records. I called and spoke with Adriana in Medical records and she states we cannot fax a drug screen to her without a court order and to refer all calls to them from [facility]. I went to the patient's room to see if she has spoken to Eleonora Alfaro and the boyfriend is in the room and states to come back at a later time to speak with her privately. CM will continue to follow and assist with discharge planning/needs. DCP- Discharge Planning Updated by [email or web address]: Sophia Vazquez on 02/01/19 1:[address] Patient Name: CHARLES HENDRICKS Admission Status: ER Accout number: [id number] Admission Date: 01-31-2019 : 1980 Admission Diagnosis: Attending: STEPHEN HAYNES Current LOS: 1 Anticipated DC Date: 02-01-2019 Planned Disposition: Home with Home Health Primary Insurance: MEDICARE A & B Discharge Planning Comments: CM met with patient to complete initial dc planning assessment. CM educated patient on the CM role and verbal consent given by patient to complete assessment. Patient was living with her father prior to admission. She states she will not be returning there "they are no longer on speaking terms". She states she will be staying with a friend "Barbara". She is going to call Barbara to get her address. She states she has 3 children (ages 5,3 and 1 that are staying with family. CM discussed availability of home health, rehab services, and medical equipment. Patient states she may need a skilled facility in [place] or will need home health. She states her friend is a nurse and would be a teachable healthcare applications analyst. She is going to get me the address of her discharge disposition and also a possible skilled facility to go to. I did inform her that Medicare will only cover 20 days at 100% of a skilled facility. She states she also has Medicaid ([place]). CM will continue to follow and will assist as needed with dc plans/needs. Residential Subcontractor: Sophia Vazquez DCPIA - Discharge Planning Initial Assessment Updated by [email or web address]: Sophia Vazquez on 02/01/19 2:37 pm * Is the patient Alert and Oriented? Yes * How many steps to enter\\exit or inside your home? 3/0 * PCP Dr. Jaylon Hermosillo in [place] * [facility] in [place] * Preadmission Environment Home with Family * ADLs Independent * Equipment None * List name and contact numbers for known caregivers / representatives who currently or will assist patient after discharge: Zoran Long - boyfriend - no phone Barbara - friend - * Verbal permission to speak to the caregivers and representatives has been obtained from the patient. Yes * Community resources currently utilized None * Additional services required to return to the preadmission environment? Yes * Can the patient safely return to the preadmission environment? Yes * Has this patient been hospitalized within the prior 30 days at any hospital? No Coverage Notice Reviewer: [id number] Love Vazquez Notice Issued Date-Time: 02/09/2019 13:44 Notice Type: Patient Choice Letter Notice Delivered To: Patient Relationship to Patient: Self Information Systems Project Manager Name: Delivery Method: HAND - Hand Delivered Patrica Days: Prior Verbal Notification: Recipient Understood Notice: Yes Recipient Signature: Yes Med Rec Note Co-signed by Attending: Coverage Notice Comment: AUBREE for [facility] and [facility] in [place] Reviewer: [id number] Love Vazquez Notice Issued Date-Time: 02/10/2019 9:51 Notice Type: IM Discharge Notice Notice Delivered To: Patient Relationship to Patient: Self Information Systems Project Manager Name: Delivery Method: HAND - Hand Delivered Patrica Days: Prior Verbal Notification: Recipient Understood Notice: Yes Recipient Signature: Yes Med Rec Note Co-signed by Attending: Coverage Notice Comment: IMM explained, signed, given, original placed in MR Last DP export: 02/09/19 2:41 pm Patient Name: CHARLES HENDRICKS Page [phone] at 1014 All edits/amendments must be made on the electronic document DICTATION DATE: 02/10/19 1013 REHAB LIAISON: FATOUMATA 02/10/19 1013 RPT#: [id number] DC DATE: STATUS: ADM IN [facility] [address] [place] [address] END OF REPORT
--- NOTE | 2019-02-10 10:22 | MORECARE ---
CASE MANAGEMENT DISCHARGE SUMMARY PATIENT: CHARLES HENDRICKS UNIT: [id number] ADM DATE: 01/31/19 AGE: 38 : 78 SEX: F ROOM/BED: D.2222 AUTHOR: YOLANDA,DOC PHYSICIAN: REFERRING PHYSICIAN: STEPHEN HAYNES MD DATE OF SERVICE: 02/10/19 Discharge Plan Patient Name: CHARLES HENDRICKS Facility: [facility]:[place] : 1980 Planned Disposition: Home with Home Health Anticipated Discharge Date: 02/01/19 Discharge Date: Expected LOS: 1 Initial Reviewer: [email or web address] Initial Review Date: 02/01/2019 Generated: 02/10/19 11:21 am Comments DCP- Discharge Planning Updated by [email or web address]: Sophia George on 02/10/19 9:[address] Spoke with Crystal at [facility], they have her down to see her on Friday. CM will continue to follow and assist with discharge planning/needs. DCP- Discharge Planning Updated by [id number]: Sophia Bradenrehan on 02/10/19 9:[address] Received authorization for wound vac. I met with patient and she signed [facility] paper work. I called [employer] and faxed them paperwork for home wound vac and spoke with Cristy. Patient in agreement to discharge today, her boyfriend is driving her home. I informed patient that she will need an appointment with Jaylon RUDOLPH for face to face because he is the one to sign home health orders. Faxed discharge orders to [facility]. Prachi with wound care called to change dressing if needed. CM will continue to follow and assist with discharge planning/needs. DCP- Discharge Planning Updated by [id number]: Sophia George on 02/09/19 2:[address] Received a call back from Mica at [facility], they will accept patient and see her on Friday for wound vac change. She will need to have a face to face with her PCP (Dr. Jaylon RUDOLPH after discharge). I am waiting on insurance auth for home wound vac. CM will continue to follow and assist with discharge planning/needs. DCP- Discharge Planning Updated by [id number]: Sophia Vazquez on 02/09/19 12:[address] I have faxed wound vac order sheet from [facility] to Dr. Rivera's office to be signed and Rodolfo Estrella notified. AUBREE for [facility] and [facility] in [place] signed by patient for home health. I spoke with Crystal at [facility] and clinical faxed to [phone]. [facility] Patient will be staying with a friend - Barbara Contreras at [address] [place] [address] [place] [address] DCP- Discharge Planning Updated by [id number]: Sophia Vazquez on 02/04/19 1:[address] November with [facility] in [place] called again asking for drug screen to be faxed to her. I informed her that I could not fax any records to her and referred her to Medical Records and gave her their number and transferred her call. November's call back number Is [phone] or her cell number is [phone]. DCP- Discharge Planning Updated by [id number]: Sophia Vazquez on 02/02/19 3:[address] I received a call from "Eleonora Alfaro" from [facility] in [place] in [facility]. She states that they are having a meeting about this patient and she has talked with the patient in room 2222 concerning her reason for admission. Ms. Alfaro states the patient told her from an arm infection. Eleonora Alfaro asked if I could get a copy of her drug screen (patient "told me she had one done") and fax to her at [phone] or give her a verbal. I explained to her that I could not be certain over the phone who she is and was not able to do that. I called Susan Christiansendaniele and informed her and she states to refer her to medical records. I called and spoke with Adriana in Medical records and she states we cannot fax a drug screen to her without a court order and to refer all calls to them from [facility]. I went to the patient's room to see if she has spoken to Eleonora Alfaro and the boyfriend is in the room and states to come back at a later time to speak with her privately. CM will continue to follow and assist with discharge planning/needs. DCP- Discharge Planning Updated by [email or web address]: Sophia George on 02/01/19 1:[address] Patient Name: CHARLES HENDRICKS Admission Status: ER Accout number: [id number] Admission Date: 01-31-2019 : 1980 Admission Diagnosis: Attending: STEPHEN HAYNES Current LOS: 1 Anticipated DC Date: 02-01-2019 Planned Disposition: Home with Home Health Primary Insurance: MEDICARE A & B Discharge Planning Comments: CM met with patient to complete initial dc planning assessment. CM educated patient on the CM role and verbal consent given by patient to complete assessment. Patient was living with her father prior to admission. She states she will not be returning there "they are no longer on speaking terms". She states she will be staying with a friend "Barbara". She is going to call Barbara to get her address. She states she has 3 children (ages 5,3 and 1 that are staying with family. CM discussed availability of home health, rehab services, and medical equipment. Patient states she may need a skilled facility in [place] or will need home health. She states her friend is a nurse and would be a teachable career portals teacher. She is going to get me the address of her discharge disposition and also a possible skilled facility to go to. I did inform her that Medicare will only cover 20 days at 100% of a skilled facility. She states she also has Medicaid ([place]). CM will continue to follow and will assist as needed with dc plans/needs. Security Installer: Sophia George DCPIA - Discharge Planning Initial Assessment Updated by [email or web address]: Sophia George on 02/01/19 2:37 pm * Is the patient Alert and Oriented? Yes * How many steps to enter\\exit or inside your home? 3/0 * PCP Dr. Jaylon Hermosillo in [place] * [facility] in [place] * Preadmission Environment Home with Family * ADLs Independent * Equipment None * List name and contact numbers for known caregivers / representatives who currently or will assist patient after discharge: Zoran Long - boyfriend - no phone Barbara - friend - * Verbal permission to speak to the caregivers and representatives has been obtained from the patient. Yes * Community resources currently utilized None * Additional services required to return to the preadmission environment? Yes * Can the patient safely return to the preadmission environment? Yes * Has this patient been hospitalized within the prior 30 days at any hospital? No Coverage Notice Reviewer: [email or web address] Vazquez Notice Issued Date-Time: 02/09/2019 13:44 Notice Type: Patient Choice Letter Notice Delivered To: Patient Relationship to Patient: Self Lombardi Developer Name: Delivery Method: HAND - Hand Delivered Patrica Days: Prior Verbal Notification: Recipient Understood Notice: Yes Recipient Signature: Yes Med Rec Note Co-signed by Attending: Coverage Notice Comment: [facility]UBREE for [facility] and [facility] in [place] Reviewer: [id number] Love Vazquez Notice Issued Date-Time: 02/10/2019 9:51 Notice Type: IM Discharge Notice Notice Delivered To: Patient Relationship to Patient: Self Lombardi Developer Name: Delivery Method: HAND - Hand Delivered Patrica Days: Prior Verbal Notification: Recipient Understood Notice: Yes Recipient Signature: Yes Med Rec Note Co-signed by Attending: Coverage Notice Comment: IMM explained, signed, given, original placed in MR Last DP export: 02/10/19 9:14 am Patient Name: CHARLES HENDRICKS Page [phone] at 1022 All edits/amendments must be made on the electronic document DICTATION DATE: 02/10/19 1021 HOCKEY SCOUT: FATOUMATA 02/10/19 1021 RPT#: [id number] DC DATE: STATUS: ADM IN [facility] [address] [place] [address] END OF REPORT
--- NOTE | 2019-02-10 11:38 | NUR ---
WOUND VAC DRESSING CHANGE DATE: 02/10/19 WOUND LOCATION: left antecubital WOUND MEASUREMENTS: 6cm x 4cm x 1.5cm x 1.5cm @ 3 oclock WOUND DESCRIPTION: pink MUSCLE, TENDON, OR BONE EXPOSED? no DRAINAGE AMOUNT/DESCRIPTION: small ODOR? no TYPE OF SPONGE USED AND AMOUNT: black (1 piece) SETTINGS:-125mmhg low continuous TEACHING: home vac/supplies/dressing changes Pt voiced understanding
== END 2019-02-10 14:06 | disposition home health service (06) | DRG 908 ==
LOC: D.ER 07:42 → D.MS 08:30
PROVIDERS: Anesthesiology; Emergency Medicine; Family Medicine; Orthopaedic Surgery; ADMIT Internal Medicine Nephrology; ATTEND Internal Medicine Nephrology
PROC: 0KN70ZZ Release Right Upper Arm Muscle, Open Approach (ICD-10-PCS; principal; 2019-01-31 13:00)
PROC: 05HY33Z Insertion of Infusion Device into Upper Vein, Percutaneous Approach (ICD-10-PCS; 2019-02-02)
PROC: 0J9D0ZZ Drainage of Right Upper Arm Subcutaneous Tissue and Fascia, Open Approach (ICD-10-PCS; 2019-02-04)
PROC: 0LD Tendons, Extraction (ICD-10-PCS; 2019-02-05)
DX: T79.A11A Traumatic compartment syndrome of right upper extremity, initial encounter (principal); L03.113 Cellulitis of right upper limb; D62 Acute posthemorrhagic anemia; F17.213 Nicotine dependence, cigarettes, with withdrawal; I82.601 Acute embolism and thrombosis of unspecified veins of right upper extremity; F31.9 Bipolar disorder, unspecified